=== PATIENT | male | born 1990 | race Caucasian/White ===

== ENCOUNTER 2016-07-02 11:19 | Emergency (ER) | payer SELFPAY ==
[~2016-07-02] VITALS: Ht 175.3 cm; Wt 79.4 kg
[2016-07-02 11:24] VITALS: BP 162/96; PULSE 129; RESP 22; TEMP 98.9; O2SAT 97
--- NOTE | 2016-07-02 11:28 | NUR ---
No available ER beds at this time. Pt place to ER waiting room in stable condition.
--- NOTE | 2016-07-02 12:50 | NUR ---
Pt placed to ER bed 08 and to gown. Pt report given to GLORIA Esposito.
--- NOTE | 2016-07-02 13:00 | NUR ---
Pt presenst to ED co abd pain. Pt reports h/o tachycardia.pt has no aute distress noted.
--- NOTE | 2016-07-02 13:05 | NUR ---
ER at bedside examining patient.
[2016-07-02] MEDS ORDERED: MAG HYDROX/AL HYDROX/SIMETH 30 ML, BELLADONNA ALKALOIDS/PHENOBARB 10 ML, LIDOCAINE VISC... PO ONE ×3 (13:45)
--- NOTE | 2016-07-02 13:47 | NUR ---
Pt medicated tolerated well. continuing to monitor.
[2016-07-02] MEDS ORDERED: MAGNESIUM CITRATE 300 ML ORAL SOLUTION PO ONE (14:00)
[2016-07-02 14:06] VITALS: BP 138/88; PULSE 106; RESP 22; TEMP 98.5; O2SAT 97
--- NOTE | 2016-07-02 14:06 | NUR ---
Patient given written and verbal discharge instructions and verbalizes understanding. ER MD discussed with patient the results and treatment provided. Given copies of tests performed in ER. Patient in stable condition. ID arm band removed. Patient educated on pain management and to follow up with PMD. Pain Scale 0. Opportunity for questions provided and answered.
== END 2016-07-02 14:06 | disposition home or self-care (01) ==
LOC: SED 11:19
DX: K59.00 Constipation, unspecified (principal)
CPT/HCPCS: 74000; 99283; J2001

== ENCOUNTER 2016-07-06 18:35 | Emergency (ER) | payer SELFPAY ==
[~2016-07-06] VITALS: Ht 175.3 cm; Wt 79.4 kg
[2016-07-06 18:35] VITALS: BP 139/81; PULSE 111; RESP 17; TEMP 97.6; O2SAT 99
--- NOTE | 2016-07-06 18:35 | NUR ---
BROUGHT BACK TO BED #6 AND TRIAGED. REPORT GIVEN TO DEMETRIUS
--- NOTE | 2016-07-06 18:45 | NUR ---
patient presents to the emergency department with complaints of intermittent l sided abd pain that he had since last friday but got worse on friday. Patient states he was seen here on friday and was sent home but now the pain appear more constant. patient denies pain at this time or n/v. last BM was 20 min prior to arrival and states he was having some blood in his stool. will continue to monitor
--- NOTE | 2016-07-06 19:05 | NUR ---
Report and care recieved from Becca CASTRO. Pt states that he has been having abd pain 03/04 since friday. He was recently at the ER for the same problem. Pt was treated with protonix and laxative per pt. Pt states he has not had a well formed BM for about a week. Pt staes he sees bright red blood when he wipes and in the stool. Pt states the pain comes in waves. Will continue to monitor. No other injuries or complaints mentioned. No distress noted.
[2016-07-06] MEDS ORDERED: KETOROLAC TROMETHAMINE 30 MG VIAL IVP ONE (19:15)
[2016-07-06] MEDS ORDERED: PROCHLORPERAZINE EDISYLATE 10 MG/2 ML VIAL IVP ONE (19:15)
[2016-07-06 19:26] LABS: MEAN CORPUSCULAR HEMOGLOBIN 25 pg (27-31)
--- NOTE | 2016-07-06 19:30 | NUR ---
ER Dr. Grimaldo at bedside examining patient.
[2016-07-06 19:31] LABS: BASOPHILS # (AUTO) 0.2 K/uL (0.0-0.2); BASOPHILS % (AUTO) 1.9 % (0.0-2.0); CALCIUM 8.7 mg/dL (8.4-11.0); CREATININE 1.11 mg/dL (0.55-1.30); EOSINOPHILS # (AUTO) 0.1 K/uL (0.0-0.4); HEMOGLOBIN 14.7 g/dL (14.0-18.0); LYMPHOCYTES # (AUTO) 1.7 K/uL (1.0-5.5); LYMPHOCYTES % (AUTO) 13.7 % (20.5-51.5); MEAN CORPUSCULAR HGB CONC 33 % (32-36); MEAN CORPUSCULAR VOLUME 78 fL (79.0-98.0); MONOCYTES # (AUTO) 1.1 K/uL (0.0-1.0); NEUTROPHILS # (AUTO) 9.2 K/uL (1.8-7.7); NEUTROPHILS % (AUTO) 74.4 % (40.0-70.0); PLATELET COUNT (AUTO) 296 K/uL (130-430); POTASSIUM 3.8 mmol/L (3.5-5.1); RED BLOOD CELL COUNT(AUTO) 5.78 MIL/uL (4.2-6.2); RED CELL DISTRIBUTION WIDTH 13.7 % (9.0-15.0); WHITE BLOOD COUNT (AUTO) 12.3 K/uL (4.8-10.8)
[2016-07-06 19:35] LABS: ALBUMIN 3.9 g/dL (3.4-4.8); TOTAL BILIRUBIN 0.3 mg/dL (0.0-1.0); TOTAL PROTEIN, SERUM 8.3 g/dL (6.4-8.3)
[2016-07-06 20:06] LABS: BILIRUBIN,URINE NEGATIVE (NEGATIVE); BLOOD, URINE NEGATIVE (NEGATIVE); CLARITY/URINE CLEAR (CLEAR); COLOR,URINE YELLOW (YELLOW); GLUCOSE,URINE NEGATIVE (NEGATIVE); KETONES,URINE NEGATIVE (NEGATIVE); LEUKOCYTE ESTERASE ,URINE NEGATIVE (NEGATIVE); NITRITE, URINE NEGATIVE (NEGATIVE); PROTEIN URINE NEGATIVE (NEGATIVE); UROBILINOGEN,URINE 0.2 (0.2-1.0)
[2016-07-06 21:30] VITALS: BP 139/81; PULSE 85; RESP 17; TEMP 97.6; O2SAT 99
--- NOTE | 2016-07-06 21:30 | NUR ---
Patient given written and verbal discharge instructions and verbalizes understanding. ER MD discussed with patient the results and treatment provided. Patient in stable condition. ID arm band removed. IV catheter removed intact and dressing applied, no active bleeding. Rx of Motrin given. Patient educated on pain management and to follow up with PMD. Pain Scale 0/10. Opportunity for questions provided and answered.
== END 2016-07-06 21:30 | disposition home or self-care (01) ==
LOC: SED 18:35
DX: R10.12 Left upper quadrant pain (principal); R10.32 Left lower quadrant pain
CPT/HCPCS: 36415; 80053; 81003; 82150; 83690; 85025; 96374; 96375; 99284; J0780; J1885